=== PATIENT | male | born 1950 | race Caucasian/White ===

== ENCOUNTER 2019-10-12 09:04 | Day surgery (SDC) | payer MEDICARE, MEDICAID ==
[~2019-10-12] VITALS: Ht 167.6 cm; Wt 90.6 kg
[2019-10-12] VITALS (9 sets, daily range): BP systolic 103–134; BP diastolic 57–81
[2019-10-12] MEDS ORDERED: LORazepam 0.5 MG tablet PO PRN (09:35)
[2019-10-12] MEDS ORDERED: diphenhydrAMINE 25mg capsule PO PRN (09:35)
[2019-10-12] MEDS ORDERED: normal saline 1,000 ML IV SCH (09:35)
[2019-10-12] MEDS ORDERED: nitroGLYCERIN 0.4mg SUBLingual tab SL PRN ×2 (09:35→15:35)
[2019-10-12] MEDS ORDERED: LEVO50TA66 PO (10:16)
[2019-10-12] MEDS ORDERED: ALBU18HF2 INH (10:16)
[2019-10-12] MEDS ORDERED: ALPR1TAB2 PO (10:16)
[2019-10-12] MEDS ORDERED: VENL150C2 PO (10:16)
[2019-10-12] MEDS ORDERED: QUET400T PO (10:16)
[2019-10-12] MEDS ORDERED: LISI-639 PO (10:16)
[2019-10-12] MEDS ORDERED: ADV50100 INH (10:20)
[2019-10-12] MEDS ORDERED: midazolam 2 mg/2 ml injection ONE ×2 (11:59→12:27)
[2019-10-12] MEDS ORDERED: fentaNYL/PF 50MCG/1 ML 2ML syringe ONE (11:59)
[2019-10-12] MEDS ORDERED: verapamil 2.5 mg/ml inj IV ONE (11:59)
[2019-10-12] MEDS ORDERED: heparin 1,000unit/ml 10ml vial 10 ML ONE (12:00)
[2019-10-12] MEDS ORDERED: iohexol 350 MG/ML 50ML vial IV ONE (12:00)
[2019-10-12] MEDS ORDERED: iohexol 350MG/ML 100ml bottle IV ONE (12:00)
[2019-10-12] MEDS ORDERED: LIDOcaine 1% (10mg/ml)w/preservative injection 20ml MDV ONE (12:00)
[2019-10-12] MEDS ORDERED: nitroGLYCERIN-Tridil 50MG/D5W 250 ML IV ONE (12:00)
[2019-10-12] MEDS ORDERED: ondansetron/PF 4mg/2ml inj IV PRN ×2 (13:40→15:35)
[2019-10-12] MEDS ORDERED: OXAZEpam 15mg capsule PO PRN ×2 (13:40→15:35)
[2019-10-12] MEDS ORDERED: HYDROcodone/acetaminophen 10/325mg tab PO PRN ×2 (13:40→15:35)
[2019-10-12] MEDS ORDERED: HYDROcodone/acetaminophen 5mg/325mg tablet PO PRN ×2 (13:40→15:35)
[2019-10-12] MEDS ORDERED: proCHLORperazine 10 MG/2 ml inj IV PRN ×2 (13:40→15:35)
[2019-10-12] MEDS ORDERED: normal saline 1000ml 1,000 ML IV SCH (15:35)
== END 2019-10-12 16:05 | disposition home or self-care (01) ==
LOC: SSTAY O 09:04
PROVIDERS: ATTEND Internal Medicine Cardiovascular Disease
DX: Z01.810 Encounter for preprocedural cardiovascular examination (principal); I25.10 Atherosclerotic heart disease of native coronary artery without angina pectoris; J44.9 Chronic obstructive pulmonary disease, unspecified; E78.5 Hyperlipidemia, unspecified; F32.9 Major depressive disorder, single episode, unspecified; F17.210 Nicotine dependence, cigarettes, uncomplicated; Z88.5 Allergy status to narcotic agent; Z88.1 Allergy status to other antibiotic agents; Z79.899 Other long term (current) drug therapy
CPT/HCPCS: 93005; 93458; 99152; 99153; C1769; C1894; J1644; J2001; J2250; J3010; J7030; Q0163; Q9967; A4620; A6258; J3490